=== PATIENT | female | born 1975 | race Caucasian/White ===

== ENCOUNTER 2019-07-01 12:54 | Emergency (ER) | payer BC ==
[2019-07-01] MEDS ORDERED: ONDANSETRON 4 MG/2 ML VIAL IVP ONE (12:55)
--- NOTE | 2019-07-01 12:59 | ER Report ---
History and Physical Time Seen By MD: 12:53 HPI/ROS CHIEF COMPLAINT: Lightheadedness and rectal bleeding HISTORY OF PRESENT ILLNESS: This is a 44-year-old female presents to emergency department for lightheadedness and rectal bleeding. Patient states that this past Tuesday she had a miscarriage, she had a procedure "not a D&C in the ER in [place]", was given "some suppository that helped my uterus", has not had vaginal bleeding or significant concerns since the procedure. She states that she is camping with her family this weekend, this morning felt some drainage from her rectum, she noted to have some blood, became lightheaded and has had several episodes of blood noted from her rectum, she is slightly nauseous, no vomiting. She denies fevers or chills. She has had intermittent abdominal pain as well pain-free at the moment. REVIEW OF SYSTEMS: Constitutional: No fever, no chills. Eyes: No discharge. ENT: No sore throat. Cardiovascular: No chest pain, no palpitations. Respiratory: No cough, no shortness of breath. Gastrointestinal: As above. ACCOUNT STRATEGIST: As above. Genitourinary: No hematuria. Musculoskeletal: No back pain. Skin: No rashes. Neurological: As above. Allergies: Coded Allergies: No Known Drug Allergies (Unverified , 07/01/19) Home Meds No Active Prescriptions or Reported Meds Past Medical/Surgical History Patient has a past medical and surgical history of mitral valve prolapse, miscarriages 6. Reviewed Nurses Notes: Yes Constitutional Vital Sign - Last 24 Hours 07/01/19 07/01/19 07/01/19 07/01/19 12:59 13:00 13:03 13:04 Temp 98.4 Pulse 84 98 87 87 Resp 20 26 B/P (MAP) 136/83 125/82 (96) 123/75 (91) 124/80 (95) Pulse Ox 95 98 O2 Delivery Room Air 07/01/19 07/01/19 07/01/19 07/01/19 13:04 13:30 14:00 14:30 Pulse 95 85 78 87 Resp 26 13 24 B/P (MAP) 125/82 (96) 125/75 (92) 112/67 (82) 110/73 (85) Pulse Ox 96 96 93 07/01/19 07/01/19 07/01/1919 15:00 15:30 16:00 16:30 Pulse 80 81 81 82 Resp 17 10 17 15 B/P (MAP) 115/75 (88) 115/75 (88) 115/69 (84) 108/65 (79) Pulse Ox 93 94 95 94 Physical Exam General Appearance: The patient is alert, has no immediate need for airway protection and no signs of toxicity. Eyes: Pupils equal and round no pallor or injection. ENT, Mouth: Mucous membranes are moist. Respiratory: There are no retractions, lungs are clear to auscultation. Cardiovascular: Regular rate and rhythm. No murmurs, clicks or rubs. Gastrointestinal: Abdomen is soft , mild generalized abdominal discomfort with firm palpation, no masses, bowel sounds normal. Rectal exam negative for hemorrhage, no fissures or trauma, digital rectal exam negative for blood on the gloved finger. ACCOUNT STRATEGIST: External exam only, there is scant amount of bright red blood noted to the right labia majora otherwise unremarkable, pelvic exam deferred no vaginal hemorrhage. Neurological: Alert and oriented 4. Moving all questions. Following all commands. No focal neuro deficits per Skin: Warm and dry, no rashes. Musculoskeletal: Neck is supple non tender. Extremities are nontender, nonswollen and have full range of motion. DIFFERENTIAL DIAGNOSIS: After history and physical exam differential diagnosis was considered for vasovagal event, GI bleed, intra-abdominal perforation, medical procedure failure. Medical Decision Making Data Points Result Diagram: 07/01/19 1233 07/01/19 1233 Laboratory Hematology Test 07/01/19 12:33 White Blood Count 8.3 k/uL (4.5-11.0) Red Blood Count 3.71 M/uL (4.17-5.56) L Hemoglobin 10.7 g/dL (12.0-16.0) L Hematocrit 31.8 % (34.0-47.0) L Mean Corpuscular Volume 85.8 fL (80.0-96.0) Mean Corpuscular Hemoglobin 28.9 pg (26.0-33.0) Mean Corpuscular Hemoglobin Concent 33.6 g/dL (32.0-36.0) Red Cell Distribution Width 13.2 % (11.5-14.5) Platelet Count 265 K/uL (150-450) Mean Platelet Volume 9.5 fL (7.2-11.1) Neutrophils (%) (Auto) 62.1 % (39.4-72.5) Lymphocytes (%) (Auto) 27.5 % (17.6-49.6) Monocytes (%) (Auto) 8.6 % (4.1-12.4) Eosinophils (%) (Auto) 1.2 % (0.4-6.7) Basophils (%) (Auto) 0.6 % (0.3-1.4) Nucleated RBC Relative Count (auto) 0.1 /100WBC Neutrophils # (Auto) 5.2 K/uL (2.0-7.4) Lymphocytes # (Auto) 2.3 K/uL (1.3-3.6) Monocytes # (Auto) 0.7 K/uL (0.3-1.0) Eosinophils # (Auto) 0.1 K/uL (0.0-0.5) Basophils # (Auto) 0.0 K/uL (0.0-0.1) Nucleated RBC Absolute Count (auto) 0.01 K/uL Chemistry Test 07/01/19 12:33 07/01/19 12:50 Sodium Level 138 mmol/L (137-145) Potassium Level 3.2 mmol/L (3.5-5.0) Chloride Level 104 mmol/L (98-107) Carbon Dioxide Level 20 mmol/L (22-31) Blood Urea Nitrogen 15 mg/dl (7-18) Creatinine 0.80 mg/dl (0.52-1.04) Glomerular Filtration Rate Calc > 60.0 Random Glucose 124 mg/dl (75-110) Calcium Level 9.1 mg/dl (8.4-10.2) Total Bilirubin 0.5 mg/dl (0.2-1.3) Aspartate Amino Transf (AST/SGOT) 26 U/L (0-35) Alanine Aminotransferase (ALT/SGPT) 28 U/L (0-56) Alkaline Phosphatase 62 U/L (0-126) Total Protein 7.4 g/dl (6.3-8.2) Albumin 4.2 g/dl (3.5-5.0) Human Chorionic Gonadotropin, Quant 2796 mIU/ml Lactate 1.5 mmol/L (0.7-2.1) Coagulation Test 07/01/19 12:33 Prothrombin Time 12.5 seconds (12.0-14.4) Prothromb Time International Ratio 0.94 Activated Partial Thromboplast Time 26 seconds (23-35) Urinalysis Test 07/01/19 00:00 Urine Color Straw Urine Clarity Clear Urine pH 6.0 pH (4.8-9.5) Urine Specific [place] 1.004 Urine Protein Negative mg/dL (NEGATIVE) Urine Glucose (UA) Negative mg/dL (NEGATIVE) Urine Ketones Trace mg/dL (NEGATIVE) Urine Blood Moderate (NEGATIVE) Urine Nitrite Negative (NEGATIVE) Urine Bilirubin Negative (NEGATIVE) Urine Urobilinogen Negative mg/dL (0.2-1.9) Urine Leukocyte Esterase Negative (NEGATIVE) Urine RBC 5 /HPF (0-2/HPF) Urine WBC 1 /HPF (0-5/HPF) Urine Squamous Epithelial Cells Few /LPF (</=FEW) Urine Bacteria Negative /HPF (NONE-FEW) Urine Mucus None /HPF (NONE-FEW) EKG/Imaging EKG Interpretation 12 lead EKG: Time of EKG 1258. Rhythm: Normal sinus rhythm, ventricular rate 87 BPM. [place]: normal QRS: Prolonged QT. ST segments: No ST depression or elevation identified, flattened T waves noted in V3 through V6. Imaging FACILITY: [facility] [place] PATIENT NAME: Ivett Briggs : 1975 MR: [id number] V: [id number] EXAM DATE: ORDERING PHYSICIAN: MORRIS FELDER TECHNOLOGIST: Location: [facility] [place] Patient: Ivett Briggs : 1975 Visit/Account:[id number] Date of Sevice: 07/01/2019 EXAMINATION: CT abdomen and pelvis with contrast COMPARISON: None. HISTORY: abdominal pain, recent miscarriage. Dizziness and lightheadedness. PROCEDURE: Multiplanar contrast enhanced CT of the abdomen and pelvis with 75 mL intravenous Isovue 370. One of the following dose optimization techniques was utilized in the performance of this exam: Automated exposure control; adjustment of the mA and/or kV according to the patient's size; or use of an iterative reconstruction technique. Specific details can be referenced in the facility's radiology CT exam operational policy. FINDINGS: Visualized thorax: Negative. Liver: Negative. Gallbladder and biliary system: Negative Spleen: Negative. Pancreas: Negative. Adrenal glands: Negative. Kidneys and bladder: Negative. Vessels: Negative. Bowel and mesentery: Stomach, small bowel, and appendix are within normal limits. Small to moderate amount of stool in the colon. Questionable mild thickening along the rectosigmoid colon. Pelvic organs: Approximately 2 cm region of of heterogeneous enhancing tissue within the endometrial canal towards the fundus. Left ovary corpus luteum. Lymph nodes: No adenopathy. Free air/free fluid: None. Musculoskeletal: Negative. IMPRESSION: 1. Approximately 2 cm region of heterogeneous enhancing tissue within the endometrial canal. Correlation with any history of abnormal bleeding is recommended as retained products of conception is a possibility. Consider gynecology consultation as well as further characterization by pelvic ultrasound as clinically indicated. 2. Questionable mild thickening along the rectosigmoid colon. This could be pseudothickening related to colonic decompression although correlation with any evidence of a low-grade colitis is recommended Results were discussed with MORRIS FELDER at 07/01/2019 2:24 PM. Report Dictated By: Alireza Yanez MD at 07/01/2019 2:15 PM Report E-Signed By: Alireza Yanez MD at 07/01/2019 2:27 PM WSN:[id number] FACILITY: [facility] [place] PATIENT NAME: Ivett Briggs : 1975 MR: [id number] V: [id number] EXAM DATE: ORDERING PHYSICIAN: MORRIS FELDER TECHNOLOGIST: Location: [facility] [place] Patient: Ivett Briggs : 1975 Visit/Account:[id number] Date of Sevice: 07/01/2019 Examination: Pelvic ultrasound Comparison: CT earlier the same day. History: Bleeding. Recent miscarriage. Findings: Standard endovaginal pelvic ultrasound with color flow and spectral analysis. Uterus: Uterus measurement: 8.2 x 5.3 x 5.7 cm Endometrium measurement: 13 mm The endometrium towards the uterine fundus is mildly heterogeneous and on Doppler interrogation there is an approximately 1 cm region of increased vascularity. Adnexa: Right ovary: 3.1 x 2.7 x 1.6 cm . No suspicious ovarian or adnexal mass. Normal arterial and venous flow is documented within the ovary on Doppler evaluation. Left ovary: 3.0 x 1.9 x 1.6 cm . No suspicious ovarian or adnexal mass. Normal arterial and venous flow is documented within the ovary on Doppler evaluation. Free fluid: Minimal simple appearing pelvic free fluid is nonspecific but favored to be physiologic. Urinary bladder: Unremarkable. IMPRESSION: 1. Mildly thickened and heterogeneous endometrium; on Doppler interrogation there is a more focal region of increased vascularity towards the uterine fundus and given the history of abnormal bleeding, the findings are concerning for retained products of conception. ACCOUNT STRATEGIST consultation is recommended. 2. Negative sonographic evaluation of the adnexa. Results were discussed with MORRIS FELDER at 07/01/2019 4:13 PM. Report Dictated By: Alireza Yanez MD at 07/01/2019 4:10 PM Report E-Signed By: Alireza Yanez MD at 07/01/2019 4:15 PM WSN:[id number] ED Course/Re-evaluation Clinical Indication for ER IV: Hydration, IV Access ED Course The patient was admitted to room. A history of physical were obtained. Differential diagnoses were considered. An IV was started. Patient was given 50 mg IV Toradol after blood work was evaluated. A CBC, CMP, PT and INR were obtained, patient was typed and screened. 1 L normal saline bolus was given. CBC showing H&H 10.7 and 31.8, potassium 3.2, blood sugar 124. EKG showing normal sinus rhythm with prolonged QT otherwise unremarkable. CT of the abdomen and pelvis showing Approximately 2 cm region of heterogeneous enhancing tissue within the endometrial canal. Correlation with any history of abnormal bleeding is recommended as retained products of conception is a possibility. Questionable mild thickening along the rectosigmoid colon. This could be pseudothickening related to colonic decompression although correlation with any evidence of a low-grade colitis is recommended. As vaginal ultrasound showingMildly thickened and heterogeneous endometrium; on Doppler interrogation there is a more focal region of increased vascularity towards the uterine fundus and given the history of abnormal bleeding, the findings are concerning for retained products of conception. ACCOUNT STRATEGIST consultation is recommended. Negative sonographic evaluation of the adnexa. I did review this with the patient, I did recommend that the patient follows up with GI as well as ACCOUNT STRATEGIST, her stool is Hemoccult-positive, although on rectal exam I did not see any hemorrhaging, no blood around the anus, no hemorrhaging from the vagina there was a very small amount of bright red blood noted on the external exam of the vagina. Patient states that she has had positive Hemoccult in the past and was recommended that she follows up with GI and has never done this, I did recommend that she needs to do this soon as possible for follow-up and reevaluation, she expressed understanding, states that she will which returns to [place], she'll also follow up with her ACCOUNT STRATEGIST. 07/01/2019 4:52:27 pm I did review this with Dr. Lopez, the ACCOUNT STRATEGIST on-call, she felt that the patient would be able to go home safely and follow up with her ACCOUNT STRATEGIST also have the patient follow-up with GI. Decision to Disposition Date: Jul 01, 2019 Decision to Disposition Time: 16:45 Depart Departure Latest Vital Signs Vital Signs Date Time Temp Pulse Resp B/P (MAP) Pulse Ox O2 Delivery O2 Flow Rate FiO2 07/01/19 16:30 82 15 108/65 (79) 94 07/01/19 12:59 98.4 Room Air Impression: Primary Impression: Rectal bleeding Additional Impression: Vasovagal near syncope Condition: Improved Disposition: HOME OR SELF-CARE New Scripts No Active Prescriptions or Reported Meds Patient Instructions: Rectal Bleeding (ED) Additional Instructions: Your lab work did not show anything concerning. The CT and ultrasound showing thickened endometrium, please follow up with your ACCOUNT STRATEGIST when your return to [place]. As you have microscopic blood on exam today and no hemorrhaging please follow-up with a GI specialist when you return home. Be sure to drink plenty of water. Get plenty of rest. Take Tylenol for pain, please avoid NSAIDs until he follow-up with GI. Return to the ER for any concerns or worsening symptoms. Problem Qualifiers MORRIS FELDER VACUUM SYSTEM TESTER-BC Jul 01, 2019 12:59
[2019-07-01 13:13] LABS: PLATELET COUNT, AUTOMATED 265 K/uL (150-450)
[2019-07-01 13:18] LABS: INR 0.94
[2019-07-01] MEDS ORDERED: IOPAMIDOL 76% 100 ML INFUS BTL 100 ML ONE (13:49)
--- NOTE | 2019-07-01 13:53 | EKG ---
FACILITY: [facility] PATIENT NAME: BESSY NORRIS : [id number] MR: [id number] V: [id number] EXAM DATE: ORDERING PHYSICIAN: MORRIS FELDER TECHNOLOGIST: VICTORIANO Test Reason : DIZZY Blood Pressure : / mmHG Vent. Rate : 087 BPM Atrial Rate : 087 BPM P-R Int : 118 ms QRS Dur : 096 ms QT Int : 386 ms P-R-T Axes : 031 050 -24 degrees QTc Int : 464 ms Normal sinus rhythm T wave abnormality, consider inferior ischemia Nonspecific T wave abnormality, lateral leads Prolonged QT Abnormal ECG No previous ECGs available Confirmed by MARBIN MENDEZ ([id number]) on 07/01/2019 6:13:02 PM Referred By: Gil CACERES Confirmed By:MARBIN MENDEZ
--- NOTE | 2019-07-01 14:35 | RADIOLOGY IMAGING REPORT ---
FACILITY: [facility] [place] PATIENT NAME: Ivett Briggs : 1975 MR: [id number] V: [id number] EXAM DATE: ORDERING PHYSICIAN: MORRIS FELDER TECHNOLOGIST: Location: [facility] [place] Patient: Ivett Briggs : 1975 Visit/Account:[id number] Date of Sevice: 07/01/2019 EXAMINATION: CT abdomen and pelvis with contrast COMPARISON: None. HISTORY: abdominal pain, recent miscarriage. Dizziness and lightheadedness. PROCEDURE: Multiplanar contrast enhanced CT of the abdomen and pelvis with 75 mL intravenous Isovue 3 70. One of the following dose optimization techniques was utilized in the performance of this exam: A utomated exposure control; adjustment of the mA and/or kV according to the patient's size; or use of an iterative reconstruction technique. Specific details can be referenced in the facility's radiolo gy CT exam operational policy. FINDINGS: Visualized thorax: Negative. Liver: Negative. Gallbladder and biliary system: Negative Spleen: Negative. Pancreas: Negative. Adrenal glands: Negative. Kidneys and bladder: Negative. Vessels: Negative. Bowel and mesentery: Stomach, small bowel, and appendix are within normal limits. Small to moderate a mount of stool in the colon. Questionable mild thickening along the rectosigmoid colon. Pelvic organs: Approximately 2 cm region of of heterogeneous enhancing tissue within the endometrial canal towards the fundus. Left ovary corpus luteum. Lymph nodes: No adenopathy. Free air/free fluid: None. Musculoskeletal: Negative. IMPRESSION: 1. Approximately 2 cm region of heterogeneous enhancing tissue within the endometrial canal. Correlat ion with any history of abnormal bleeding is recommended as retained products of conception is a poss ibility. Consider gynecology consultation as well as further characterization by pelvic ultrasound as clinically indicated. 2. Questionable mild thickening along the rectosigmoid colon. This could be pseudothickening related to colonic decompression although correlation with any evidence of a low-grade colitis is recommended Results were discussed with MORRIS FELDER at 07/01/2019 2:24 PM. Report Dictated By: Alireza Yanez MD at 07/01/2019 2:15 PM Report E-Signed By: Alireza Yanez MD at 07/01/2019 2:27 PM WSN:[id number]
[2019-07-01] MEDS ORDERED: KETOROLAC 15 MG/ML VIAL IVP ONE (15:15)
--- NOTE | 2019-07-01 16:21 | RADIOLOGY IMAGING REPORT ---
FACILITY: [facility] - [place] PATIENT NAME: Ivett Briggs : 1975 MR: [id number] V: [id number] EXAM DATE: ORDERING PHYSICIAN: MORRIS FELDER TECHNOLOGIST: Location: [facility] [place] Patient: Ivett Briggs : 1975 Visit/Account:[id number] Date of Sevice: 07/01/2019 Examination: Pelvic ultrasound Comparison: CT earlier the same day. History: Bleeding. Recent miscarriage. Findings: Standard endovaginal pelvic ultrasound with color flow and spectral analysis. Uterus: Uterus measurement: 8.2 x 5.3 x 5.7 cm Endometrium measurement: 13 mm The endometrium towards the uterine fundus is mildly heterogeneous and on Doppler interrogation there is an approximately 1 cm region of increased vascularity. Adnexa: Right ovary: 3.1 x 2.7 x 1.6 cm . No suspicious ovarian or adnexal mass. Normal arterial and venous flow is documented within the ovary on Doppler evaluation. Left ovary: 3.0 x 1.9 x 1.6 cm . No suspicious ovarian or adnexal mass. Normal arterial and venous f low is documented within the ovary on Doppler evaluation. Free fluid: Minimal simple appearing pelvic free fluid is nonspecific but favored to be physiologic. Urinary bladder: Unremarkable. IMPRESSION: 1. Mildly thickened and heterogeneous endometrium; on Doppler interrogation there is a more focal reg ion of increased vascularity towards the uterine fundus and given the history of abnormal bleeding, t he findings are concerning for retained products of conception. SERVICING REP consultation is recommended. 2. Negative sonographic evaluation of the adnexa. Results were discussed with MORRIS FELDER at 07/01/2019 4:13 PM. Report Dictated By: Alireza Yanez MD at 07/01/2019 4:10 PM Report E-Signed By: Alireza Yanez MD at 07/01/2019 4:15 PM WSN:[id number]
[2019-07-01 16:30] VITALS: BP 108/65
== END 2019-07-01 17:02 | disposition home or self-care (01) ==
LOC: ER 13:03
DX: K62.5 Hemorrhage of anus and rectum (principal); R55 Syncope and collapse
CPT/HCPCS: 74177; 76830; 81001; 82274; 83605; 84702; 85025; 85610; 85730; 86850; 86900; 86901; 93005; 96374; 96375; 99284; J1885; J2405; Q9967; 82040; 82247; 82310; 82374; 82435; 82565; 82947; 84075; 84132; 84155; 84295; 84450; 84460; 84520

== ENCOUNTER → 2019-07-01 | Outpatient (CLI) | payer BC | LOC: AMB 12:26 | PROVIDERS: ATTEND Nurse Practitioner | DX: N93.9 Abnormal uterine and vaginal bleeding, unspecified (principal); K62.5 Hemorrhage of anus and rectum; R10.84 Generalized abdominal pain | CPT/HCPCS: A0425; A0427 ==